=== PATIENT | female | born 1945 | race Caucasian/White ===

== ENCOUNTER 2020-07-20 07:05 | Day surgery (SDC) | payer MEDICARE, BC ==
[~2020-07-20 07:05] MED LIST: Lactated Ringers 1,000 ML IV SCH; Lidocaine 1%/Sod Bicarbonate in NS 8.4% 1 ML Syringe IDERM PRN; Sodium Chloride 0.9% 10 ML Syringe FLUSH PRN
[2020-07-20] MEDS ORDERED: Lidocaine 1% 4 ML ONE (07:23)
[2020-07-20] MEDS ORDERED: fentaNYL 100 MCG/2 ML SDV ONE (07:23)
[2020-07-20] MEDS ORDERED: Propofol 200 MG/20 ML SDV ONE (07:23)
--- NOTE | 2020-07-20 07:51 | PCM.PREANE ---
Preanesthetic Assessment - Procedure Proposed Procedure: Colonoscopy - Anesthesia/Transfusion/Family Hx Anesthesia History: Prior Anesthesia Without Reaction Family History of Anesthesia Reaction: No - Review of Systems General: No Symptoms Pulmonary: No Symptoms, Other (Smoker 1/4 pack per day 40 years. ) Cardiovascular: Other (Aortic Valve Regurgitation, History of ventricular arrythmia on cardizem taken last evening.) Gastrointestinal: No Symptoms Neurological: No Symptoms Other: Reports: None - Physical Assessment NPO Status Date: 07/19/20 NPO Status Time: 21:00 Weight: 50 kg ASA Class: 3 Mental Status: Alert & Oriented x3 Airway Class: Mallampati = 2 Dentition: Reports: Normal Dentition, [place](s) Thyro-Mental Finger Breadths: 2 Mouth Opening Finger Breadths: 3 ROM/Head Extension: Full Lungs: Clear to Auscultation, Normal Respiratory Effort, Decreased Breath Sounds Cardiovascular: Regular Rate, Regular Rhythm - Allergies Allergies/Adverse Reactions: Allergies Allergy/AdvReac Type Severity Reaction Status Date / Time azithromycin Allergy Edema Verified 07/19/20 13:05 - Anesthesia Plan Pre-Op Medication Ordered: None - Acknowledgements Anesthesia Type Planned: MAC Pt an Appropriate Candidate for the Planned Anesthesia: Yes Alternatives and Risks of Anesthesia Discussed w Pt/Guardian: Yes Pt/Guardian Understands and Agrees with Anesthesia Plan: Yes PreAnesthesia Questionnaire HEENT History: Reports: Impaired Vision Cardiovascular History: Reports: Heart Murmur, High Cholesterol, Other (See Below) Other Cardiovascular History: non rheumatic aortic valve insufficiency, SVT, aortic regurgitation, ventricular arrhythmia Respiratory History: Reports: None Gastrointestinal History: Reports: Other (See Below) Other Gastrointestinal History: diverticula, pilonidal cyst with cystectomy Genitourinary History: Reports: Other (See Below) Other Genitourinary History: [employer] History: Reports: Other (See Below) Other OB/BYN History: breast surgery, left lymph node removal Musculoskeletal History: Reports: None Neurological History: Reports: None Psychiatric History: Reports: None Endocrine/Metabolic History: Reports: None Hematologic History: Reports: None Immunologic History: Reports: None Oncologic (Cancer) History: Reports: None Dermatologic History: Reports: Other (See Below) Other Dermatologic History: excision lipoma left leg x2, excision lymph nodes left breast - Infectious Disease History Infectious Disease History: Reports: None - Past Surgical History Head Surgeries/Procedures: Reports: None HEENT Surgical History: Reports: Oral Surgery, Tonsillectomy Other HEENT Surgeries/Procedures: teeth extraction Cardiovascular Surgical History: Reports: None Respiratory Surgical History: Reports: None GI Surgical History: Reports: Colonoscopy Other GI Surgeries/Procedures: pilonidal cyst excised x3 Female Surgical History: Reports: None Male Surgical History: Reports: None Endocrine Surgical History: Reports: None Neurological Surgical History: Reports: Other (See Below) Other Neurological Surgeries/Procedures: spinal surgery Other Musculoskeletal Surgeries/Procedures:: left foot surgery. Oncologic Surgical History: Reports: None - SUBSTANCE USE Tobacco Use Status *Q: Current Every Day Tobacco User Recreational Drug Use History: No - HOME MEDS Home Medications: Home Meds Albuterol [Proventil HFA] 1 - 2 puff INH Q4H PRN 03/07/15 [History] Diltiazem [Cardizem CD] 120 mg PO DAILY 03/07/15 [History] Multivitamin [Multivitamins] 1 cap PO DAILY 03/07/15 [History] Acetaminophen/Diphenhydramine [Tylenol Pm Ex-Strength Caplet] 2 tab PO BEDTIME PRN 07/19/20 [History] Ubidecarenone [Coq-10] 100 mg PO DAILY 07/19/20 [History] atorvaSTATin [Lipitor] 20 mg PO DAILY 07/19/20 [History] polyethylene glycoL 3350 [MiraLAX] 1 dose PO DAILY 07/19/20 [History] - CURRENT (IN HOUSE) MEDS Current Meds: Current Medications Lactated Ringer's (Ringers, Lactated) 1,000 mls @ 125 mls/hr IV ASDIRECTED CARMEN Stop: 07/20/20 23:00 Last Admin: 07/20/20 07:30 Dose: 125 mls/hr Documented by: Lidocaine/Sodium Bicarbonate (Buffered Lidocaine 1% In Ns 8.4%) 0.25 ml IDERM ONETIME PRN PRN Reason: Prior to IV Start Stop: 07/20/20 23:00 Last Admin: 07/20/20 07:29 Dose: 0.25 ml Documented by: Sodium Chloride (Saline Flush) 10 ml FLUSH ASDIRECTED PRN PRN Reason: Keep Vein Open Stop: 07/20/20 23:00 Discontinued Medications Fentanyl (Sublimaze) Confirm Administered Dose 100 mcg .ROUTE .STK-MED ONE Stop: 07/20/20 07:24 Lidocaine HCl (Xylocaine-Mpf 1%) Confirm Administered Dose 4 mls @ as directed .ROUTE .STK-MED ONE Stop: 07/20/20 07:24 Propofol (Diprivan 20 Ml) Confirm Administered Dose 400 mg .ROUTE .STK-MED ONE Stop: 07/20/20 07:24
--- NOTE | 2020-07-20 08:59 | PCM.PRNOTE ---
- Free Text/Narrative Note: Operative Report Date of Surgery/Procedure: July 20, 2020 Operative Procedure: Colonoscopy to cecum Pre Op Diagnosis: Positive cologuard Post-Op Diagnosis: same Surgeon: Allyson Fraser Anesthesia Technique: MAC Anesthesia Provider: Melina Flores CRNA IV Fluid Replacement, Intraop: 700cc Output, Urine Amount: 0cc EBL : 0cc Findings: 1. Diverticulosis 2. Colon polyps Specimens: 1. Transverse colon polyp 2. Sigmoid colon polyp x7 3. Rectosigmoid polyps x5 5. Rectal polyps x2 Indication: The patient is a 74 year-old lady who presented to the outpatient clinic colonoscopy. The patient has a history of a positive cologuard. We discussed the procedure of a screening colonoscopy including the polypectomy and biopsy. Risks of bleeding and perforation were discussed, the patient understood and wished to proceed. Written and consent was obtained. Description of the procedure: The patient was brought to the endoscopy suite and placed in the left lateral decubitus position. Appropriate monitors were applied. The patient was given MAC anesthesia. An anorectal examination was performed, revealing no external abnormality. The scope was placed into the rectum and advanced to cecum with moderate difficulty requiring change in patient's position to supine and external abdominal pressure. The patients cecum was entered, and the ileocecal valve and appendiceal orifice were identified and normal. At this point, the scope was withdrawn, paying careful attention to the mucosa. The patient had good bowel prep. A 4mm flat transverse colon polyp was noted and removed with a jumbo biopsy forceps. There were multiple flat 4-6mm polyps noted in the sigmoid colon, and seven of these were removed with a jumbo cold biopsy forceps. Multiple additional 5-6mm semi-sessile polyps were noted in the rectosigmoid colon and rectum. Seven of the polyps were removed with a jumbo cold biopsy forceps. There were other polyps not retrieved at this time due to the large number removed and the small area where all of the polyps were concentrated that are a risk for perforation with multiple polypectomies. In the rectum, the scope was retroflexed and no abnormalities were noted, except for some hemorrhoidal tissue. The scope was placed back in the lumen and the excess air was aspirated. The patient tolerated the procedure well. Complications: none apparent Condition: Good, transported to PACU in stable condition Allyson Fraser MD General Surgery
--- NOTE | 2020-07-20 09:02 | PCM.OPNOTE ---
- General Post-Op/Procedure Note Date of Surgery/Procedure: 07/20/20 Operative Procedure(s): colonoscopy Findings: 1. Diverticulosis 2. Colon polyps Pre Op Diagnosis: Positive cologuard Post-Op Diagnosis: same Anesthesia Technique: MAC Primary Surgeon: Allyson Fraser Anesthesia Provider: Melina Flores Pathology: 1. Transverse colon polyp 2. Sigmoid colon polyp x7 3. Rectosigmoid polyps x5 5. Rectal polyps x2 Fluid Replacement, Intraop: 700 Output, Urine Amount: 0 EBL in mLs: 0 Complications: none apparent Condition: Good
--- NOTE | 2020-07-20 09:06 | PCM48HPAN ---
Post Anesthesia Note - EVALUATION WITHIN 48HRS OF ANESTHETIC Vital Signs in Normal Range: Yes Patient Participated in Evaluation: Yes Respiratory Function Stable: Yes Airway Patent: Yes Cardiovascular Function Stable: Yes Hydration Status Stable: Yes Pain Control Satisfactory: Yes Nausea and Vomiting Control Satisfactory: Yes Mental Status Recovered: Yes Vital Signs: Last Vital Signs Temp 36.1 C 07/20/20 07:20 Pulse 83 07/20/20 07:20 Resp 16 07/20/20 07:20 BP 121/58 L 07/20/20 07:20 Pulse Ox 96 07/20/20 07:20
[2020-07-20 10:18] VITALS: BP 132/63; PULSE 62
== END 2020-07-20 10:15 | disposition home or self-care (01) ==
LOC: JD.SDS 07:05
PROVIDERS: ATTEND Surgery
DX: K63.5 Polyp of colon (principal); K57.30 Diverticulosis of large intestine without perforation or abscess without bleeding; E78.00 Pure hypercholesterolemia, unspecified; K64.9 Unspecified hemorrhoids; F17.210 Nicotine dependence, cigarettes, uncomplicated; Z79.899 Other long term (current) drug therapy; Z88.1 Allergy status to other antibiotic agents; Z98.890 Other specified postprocedural states
CPT/HCPCS: 45380; 88305; J2704; J3010; J7120; 00812; J2001

== ENCOUNTER 2021-08-09 07:28 | Day surgery (SDC) | payer MEDICARE, BC ==
[~2021-08-09 07:28] MED LIST changes: +Lidocaine 1% 4 ML ONE; +Propofol 200 MG/20 ML SDV ONE; +Sodium Chloride 0.9% 10 ML Syringe FLUSH SCH; +fentaNYL 100 MCG/2 ML SDV ONE
[2021-08-09] MEDS ORDERED: Lidocaine 1% with EPINEPHrine 1:100,000 10 ML MDV ONE ×2 (07:37→08:14)
[2021-08-09] MEDS ORDERED: Bupivacaine 0.5% 30 ML SDV ONE (08:14)
[2021-08-09] MEDS ORDERED: ePHEDrine 50 MG/ML SDV ONE (08:43)
[2021-08-09] MEDS ORDERED: ceFAZolin 1 GM Vial ONE (08:45)
[2021-08-09] MEDS ORDERED: Propofol 200 MG/20 ML SDV ONE ×2 (09:06→09:50)
[2021-08-09 10:43] VITALS: BP 104/57; PULSE 68
== END 2021-08-09 11:10 | disposition home or self-care (01) ==
LOC: JD.SDS 07:28
PROVIDERS: ATTEND Surgery
DX: D17.24 Benign lipomatous neoplasm of skin and subcutaneous tissue of left leg (principal); Z12.11 Encounter for screening for malignant neoplasm of colon; K57.30 Diverticulosis of large intestine without perforation or abscess without bleeding; K63.5 Polyp of colon; K62.1 Rectal polyp; E78.00 Pure hypercholesterolemia, unspecified; Z98.890 Other specified postprocedural states; Z79.899 Other long term (current) drug therapy; F17.210 Nicotine dependence, cigarettes, uncomplicated
CPT/HCPCS: 27339; 45380; J0690; J2704; J3010; J3490; J7120; 00811; 99100